=== PATIENT | female | born 1965 | race Caucasian/White ===

== ENCOUNTER 2017-02-05 05:34 | Observation (INO) | payer BC ==
[~2017-02-05] VITALS: Ht 162.6 cm; Wt 97.8 kg
[~2017-02-05 05:34] MED LIST: ANTI DEPRESSANT PO; LEVO150T PO; OMEP-110 PO
[2017-02-05] MEDS ORDERED: LACTATED RINGERS 1,000 ML IV SCH (06:25)
[2017-02-05 06:27] VITALS: BP 132/91
[2017-02-05] MEDS ORDERED: LIDOCAINE 1%, 2ML SQ PRN (06:30)
[2017-02-05 06:49] LABS: MICROSCOPIC AUTO
[2017-02-05 06:50] LABS: CULTURE INDICATED? YES
[2017-02-05] MEDS ORDERED: BACITRACIN 50,000 UNIT ONE (06:53)
[2017-02-05] MEDS ORDERED: BUPIVACAINE/PF 0.5% ONE (06:53)
[2017-02-05] MEDS ORDERED: EPINEPHRINE 1 MG/ML, 1ML ONE (06:53)
[2017-02-05] MEDS ORDERED: THROMBIN 5,000 UNIT VIAL TP ONE (06:53)
[2017-02-05] MEDS ORDERED: ZOLP10TA5 PO (07:09)
[2017-02-05] MEDS ORDERED: CELE200C PO (07:09)
[2017-02-05] MEDS ORDERED: VENL225T PO (07:09)
[2017-02-05] MEDS ORDERED: LIDOCAINE GEL 2%, 5ML ONE (07:26)
[2017-02-05] MEDS ORDERED: ACETAMINOPHEN 500 MG TABLET ONE (07:27)
[2017-02-05] MEDS ORDERED: GABAPENTIN 300 MG CAPSULE ONE (07:28)
[2017-02-05] MEDS ORDERED: MIDAZOLAM 1 MG/ML, 2ML ONE (07:28)
[2017-02-05] MEDS ORDERED: FENTANYL PF 250 MCG/5ML ONE (07:28)
[2017-02-05] MEDS ORDERED: DIAZEPAM 5 MG/ML, 2ML IVPush PRN (07:30)
[2017-02-05] MEDS ORDERED: METOCLOPRAMIDE 5 MG/ML, 2ML IV PRN (07:30)
[2017-02-05] MEDS ORDERED: FENTANYL PF 100 MCG/2ML IV PRN (07:30)
[2017-02-05] MEDS ORDERED: HYDROmorphone 1 MG/ML, 1ML IV PRN (07:30)
[2017-02-05] MEDS ORDERED: ACETAMINOPHEN 500 MG TABLET PO ONE (07:30)
[2017-02-05] MEDS ORDERED: MIDAZOLAM 1 MG/ML, 2ML IV PRN (07:30)
[2017-02-05] MEDS ORDERED: hydrALAzine 20 MG/ML, 1ML IV PRN (07:30)
[2017-02-05] MEDS ORDERED: LABETALOL 5MG/ML, 20ML IV PRN (07:30)
[2017-02-05] MEDS ORDERED: ALBUTEROL/IPRATROPIUM 2.5MG/0.5MG, 3 ML NPPB PRN (07:30)
[2017-02-05] MEDS ORDERED: PROMETHAZINE 25 MG/ML, 1ML IV PRN (07:30)
[2017-02-05] MEDS ORDERED: LORazepam 2 MG/ML, 1ML IVPush PRN (07:30)
[2017-02-05] MEDS ORDERED: ONDANSETRON 2MG/ML, 2ML IVPush PRN ×2 (07:30→10:00)
[2017-02-05] MEDS ORDERED: OXYcodone 5 MG/5 ML ORAL.SOL UDC PO PRN (07:30)
[2017-02-05] MEDS ORDERED: ACETAMINOPHEN 325 MG TABLET PO PRN (07:30)
[2017-02-05] MEDS ORDERED: MEPERIDINE/PF 25MG/0.5ML IVPush PRN (07:30)
[2017-02-05] MEDS ORDERED: PROPOFOL 50 ML ONE ×2 (07:31→08:48)
[2017-02-05] MEDS ORDERED: KETAMINE 10 MG/ML, 20ML ONE (07:32)
[2017-02-05] MEDS ORDERED: ONDANSETRON 2MG/ML, 2ML ONE (07:34)
[2017-02-05] MEDS ORDERED: PROPOFOL 10 MG/ML, 20ML ONE (07:34)
[2017-02-05] MEDS ORDERED: CEFAZOLIN 1,000 MG ONE (07:34)
[2017-02-05] MEDS ORDERED: SUCCINYLCHOLINE 20 MG/ML, 10ML ONE (07:34)
[2017-02-05] MEDS ORDERED: DEXAMETHASONE 4 MG/ML, 1ML ONE (07:34)
[2017-02-05] MEDS ORDERED: ROCURONIUM 10 MG/ML,10ML ONE (07:55)
[2017-02-05] MEDS ORDERED: LIDOCAINE-MPF 2% ,5ML ONE ×2 (08:49)
[2017-02-05] MEDS ORDERED: GABAPENTIN 300 MG CAPSULE PO ONE (09:00)
[2017-02-05] MEDS ORDERED: METHOCARBAMOL 750 MG TABLET PO PRN (10:00)
[2017-02-05] MEDS ORDERED: HYDROmorphone PCA 30 MG/30 ML IV PRN (10:00)
[2017-02-05] MEDS ORDERED: MAGNESIUM HYDROXIDE 8%, 30ML UDC PO PRN (10:00)
[2017-02-05] MEDS ORDERED: DIPHENHYDRAMINE 50 MG/ML, 1ML IVPush PRN (10:00)
[2017-02-05] MEDS ORDERED: morphine SULFATE 10 MG/ML, 1ML IVPush PRN (10:00)
[2017-02-05] MEDS ORDERED: BISACODYL 10 MG SUPP PR PRN (10:00)
[2017-02-05] MEDS ORDERED: PHARMACY MAY ADJ FOR RENAL FX MC PRN (10:00)
[2017-02-05] MEDS ORDERED: HYDROcodone/APAP 10/325 MG TABLET PO PRN (10:00)
[2017-02-05] MEDS ORDERED: ACETAMINOPHEN 650 MG/20.3 ML UDC ONE (10:05)
[2017-02-05] MEDS ORDERED: OXYcodone 5 MG/5 ML ORAL.SOL UDC ONE (10:06)
[2017-02-05 11:00] VITALS: BP 132/84
[2017-02-05 13:45] VITALS: BP 110/76
[2017-02-05] MEDS: CEFAZOLIN PMX 1GM/50ML 50 ML IVPB SCH (15:58)
[2017-02-05] MEDS: NS + 20MEQ KCL 1,000 ML IV SCH ×2 (16:23→20:00)
[2017-02-05] MEDS: SODIUM CHLORIDE FLUSH 10ML SYR IVF SCH (19:43)
[2017-02-05 22:45] VITALS: BP 101/74
[2017-02-06] MEDS: CEFAZOLIN PMX 1GM/50ML 50 ML IVPB SCH (00:37)
[2017-02-06 03:44] VITALS: BP 109/74
[2017-02-06] MEDS: NS + 20MEQ KCL 1,000 ML IV SCH ×2 (04:26→16:32)
[2017-02-06] MEDS ORDERED: LEVOTHYROXINE 150 MCG TABLET PO SCH (06:00)
[2017-02-06] MEDS ORDERED: VENLAFAXINE HCL PO SCH (09:00)
[2017-02-06] MEDS ORDERED: OMEPRAZOLE 20 MG CAPSULE.DR PO SCH (09:00)
[2017-02-06] MEDS ORDERED: SENNA/DOCUSATE TABLET PO SCH (09:00)
[2017-02-06] MEDS ORDERED: ZOLPIDEM 10MG TABLET PO SCH (09:00)
[2017-02-06] MEDS: SODIUM CHLORIDE FLUSH 10ML SYR IVF SCH (09:06)
[2017-02-06] MEDS: OXYcodone/APAP 5/325MG TABLET PO PRN ×2 (09:07→14:07)
[2017-02-06 09:09] VITALS: BP 122/77
[2017-02-06 14:00] VITALS: BP 123/82
[2017-02-06] MEDS ORDERED: OXYC1TAB7 PO (15:42)
[2017-02-06] MEDS ORDERED: METH750T2 PO (15:42)
[2017-02-06 16:16] VITALS: BP 118/76
== END 2017-02-06 16:33 | disposition home or self-care (01) ==
LOC: OUT 05:34 → 3NE 09:45 → 4NOR 10:24 → DCLOUNGE 02-06 16:26
PROVIDERS: ADMIT Neurological Surgery; ATTEND Neurological Surgery
DX: M50.11 Cervical disc disorder with radiculopathy, high cervical region (principal); M50.30 Other cervical disc degeneration, unspecified cervical region; M43.22 Fusion of spine, cervical region; F10.10 Alcohol abuse, uncomplicated; E78.00 Pure hypercholesterolemia, unspecified; K21.9 Gastro-esophageal reflux disease without esophagitis; Z98.1 Arthrodesis status
CPT/HCPCS: 20938; 22551; 22853; 72040; 81001; 87086; 95938; 95941; 96365; 96375; 97162; 97165; C1713; C1776; G0378; G8978; G8979; G8980; J0171; J0330; J0690; J1100; J1170; J2250; J2405; J2704; J3010; J3480; J3490